=== PATIENT | male | born 1985 ===

== ENCOUNTER 2017-05-10 15:27 | Emergency (ER) | payer MEDICAID, OTHER ==
[2017-05-10 15:39] VITALS: BMI 18.1
[2017-05-10 16:17] VITALS: BP 103/68; PULSE 116; RESP 19; TEMP 99; O2SAT 98
[2017-05-10] MEDS ORDERED: LIDOCAIN/EPI 1-0.001% 10ML INJ SOL IJ ONE (16:18)
--- NOTE | 2017-05-10 16:18 | ED PDOC ---
Arrival/HPI - General Chief Complaint: Abnormal Skin Integrity Time Seen by Provider: 05/10/17 16:18 Historian: Patient - History of Present Illness Narrative History of Present Illness (Text): 05/10/17 16:18 This 31 yo male presents to this ED c/o perineum pain x 3-4 days. Patient stated it started as a small pimple like pain, but it has been worsening. Denies drainage or rectum pain. Denies fever, rectal bleeding. Time/Duration: Other (see hpi) Context: Home Past Medical History - Provider Review Nursing Documentation Reviewed: Yes - Infectious Disease Hx of Infectious Diseases: None - Psychiatric Hx Substance Use: No - Anesthesia Hx Anesthesia: No Family/Social History - Physician Review Nursing Documentation Reviewed: Yes Family/Social History: Other (non contributory) Smoking Status: Heavy Smoker > 10 Cigarettes Daily Hx Alcohol Use: Yes Frequency of alcohol use: Socially Hx Substance Use: No Allergies/Home Meds Allergies/Adverse Reactions: Allergies No Known Allergies Allergy (Verified 05/10/17 15:38) Review of Systems - Review of Systems Constitutional: Normal. absent: Fatigue, Weight Change, Fevers Eyes: Normal ENT: Normal Respiratory: Normal Cardiovascular: Normal Gastrointestinal: Normal Genitourinary Male: Normal Musculoskeletal: Normal Skin: Abscess (see HPI) Neurological: Normal Endocrine: Normal Hemo/Lymphatic: Normal Psychiatric: Normal Physical Exam Vital Signs Temp Pulse Resp BP Pulse Ox 05/10/17 15:42 99.0 F 116 H 19 103/68 98 Temperature: Afebrile Blood Pressure: Normal Pulse: Tachycardic Respiratory Rate: Normal Appearance: Positive for: Well-Appearing, Non-Toxic, Comfortable Pain Distress: None Mental Status: Positive for: Alert and Oriented X 3 - Systems Exam Head: Present: Atraumatic, Normocephalic Pupils: Present: PERRL Extroacular Muscles: Present: EOMI Conjunctiva: Present: Normal Mouth: Present: Moist Mucous Membranes Neck: Present: Normal Range of Motion Respiratory/Chest: Present: Clear to Auscultation, Good Air Exchange. No: Respiratory Distress, Accessory Muscle Use, Wheezes, Retracting, Rhonchi Cardiovascular: Present: Regular Rate and Rhythm, Normal S1, S2. No: Murmurs Abdomen: No: Tenderness Rectal: Present: Normal Rectal Tone, Other ((+) mild induration on perineum area. No drainage or fluctuance). No: Occult Blood, Rectal Tenderness, Gross Blood, Melena, Hemorrhoids, Fissures Upper Extremity: Present: Normal Inspection Lower Extremity: Present: Normal Inspection, Normal ROM Neurological: Present: GCS=15, CN II-XII Intact, Speech Normal, Motor Func Grossly Intact, Normal Sensory Function, Normal Cerebellar Funct, Gait Normal Skin: Present: Warm, Dry, Normal Color, Other (see rectum ). No: Rashes Psychiatric: Present: Alert, Oriented x 3, Normal Insight, Normal Concentration Medical Decision Making ED Course and Treatment: 05/10/17 17:36 Patient stated his right eye has been tearing x 2 days. He admits wearing contact lens 05/10/17 17:53 Eye examination: No FB. Fluorescine stain was negative. No corneal ulcer. No corneal dendritic lesion. Possible conjunctivitis. Re-evaluation Time: 17:55 Reassessment Condition: Re-examined, Improved - Medication Orders Current Medication Orders: Discontinued Medications Fluorescein Sodium (Zouup-I-Atorb A.T.) 2 mg OD ONCE ONE Stop: 05/10/17 17:36 Last Admin: 05/10/17 17:47 Dose: 2 mg Ibuprofen (Motrin Tab) 600 mg PO STAT STA Stop: 05/10/17 17:40 Last Admin: 05/10/17 17:47 Dose: 600 mg MAR Pain/Vitals Document 05/10/17 17:47 OCS (Rec: 05/10/17 17:47 OCS [id number] Pain Reassessment Is This A Pain ReAssessment? Yes Sleep Is patient sleeping during reassessment? No Presence of Pain Presence of Pain Yes Pain Scale Used Pain Scale Used Numeric Trimethoprim/Sulfamethoxazole (Bactrim Ds Tab) 1 tab PO STAT STA PRN Reason: Protocol Stop: 05/10/17 17:40 Last Admin: 05/10/17 17:47 Dose: 1 tab - Procedure PROCEDURE NOTE (Text): 05/10/17 17:20 PROCEDURE: INCISION & DRAINAGE Performed by the emergency provider Indication: Abscess Location: perinium Preparation: The area was prepped and draped in the usual sterile fashion and was cleansed with Betadine. Local infiltration of Lidocaine 1% with Epi was used for anesthesia. Procedure: The most fluctuant portion of the abscess was incised with a #11 scalpel. Approximately 4 mL of purulent material was obtained. The abscess was packed 1/4 inch packing. A dressing was applied by me. Post-Procedure: On exam the abscess is notably less fluctuant. The patient tolerated the procedure well, and there were no complications. Disposition/Present on Arrival - Present on Arrival Any Indicators Present on Arrival: No History of DVT/PE: No History of Uncontrolled Diabetes: No Urinary Catheter: No History of Decub. Ulcer: No History Surgical Site Infection Following: None - Disposition Have Diagnosis and Disposition been Completed?: Yes Diagnosis: Abscess, perineum, Conjunctivitis Disposition: HOME/ ROUTINE Disposition Time: 17:55 Patient Plan: Discharge Condition: GOOD Discharge Instructions (ExitCare): Abscess Incision and Drainage (ED), Conjunctivitis (ED) Additional Instructions: Call private doctor for follow up visit in 2 days. Return to emergency if unable to see your doctor in 2 days. keep wound clean and dry for 2 days. Take medication as instructed. Hand washing a must. DO NOT WEAR EYE CONTACT TILL EYE PROBLEM RESOLVES. Return to emergency if infection worsen. Prescriptions: Ciprofloxacin 0.3% [Ciloxan 0.3% Ophth SOLN] 1 drop OD Q4H #1 bottle Ibuprofen [Motrin] 600 mg PO Q8 PRN #20 tab PRN Reason: Pain, Severe (8-10) Sulfamethoxazole/Trimethoprim [Bactrim DS 800 mg-160 mg] 1 tab PO BID #14 tab Referrals: PCP,NO [Primary Care Provider] - [facility] [[facility]] - Follow up with primary [facility] [Outside] - Follow up with primary Forms: [employer] (Hungarian), WORK NOTE
[2017-05-10] MEDS ORDERED: Fluorescein 1 mg Ophthalmic Strip OD ONE (17:35)
[2017-05-10] MEDS ORDERED: Tmp-Smz 800 mg-160 mg DS Tab PO STA (17:39)
== END 2017-05-10 18:06 | disposition home or self-care (01) ==
LOC: ED 15:27
DX: L02.215 Cutaneous abscess of perineum (principal); H10.9 Unspecified conjunctivitis

== ENCOUNTER 2017-05-12 13:47 | Emergency (ER) | payer MEDICAID, OTHER ==
[2017-05-12 13:47] VITALS: BMI 18.1
[2017-05-12 13:55] VITALS: TEMP 98.8; O2SAT 97
--- NOTE | 2017-05-12 14:49 | ED PDOC ---
Arrival/HPI - General Historian: Patient - History of Present Illness Symptom Course: Improving Quality: Aching Severity Level: 2 Activities at Onset: Rest Context: Home - General Chief Complaint: Wound Check Time Seen by Provider: 05/12/17 13:51 - History of Present Illness Narrative History of Present Illness (Text): 05/12/17 14:46 31yo M presenting to ED for f/u of an I&D of abscess 2 days ago. pt reporting relief of pain and discomfort. denies fevers, chills, n/v/d, or bowel/urinary changes. (Hi Patricia) Past Medical History - Provider Review Nursing Documentation Reviewed: Yes - Past History Past History: No Previous - Infectious Disease Hx of Infectious Diseases: None - Cardiac Hx Cardiac Disorders: No - Pulmonary Hx Respiratory Disorders: No - Neurological Hx Neurological Disorder: No - HEENT Hx HEENT Disorder: No - Renal Hx Renal Disorder: No - Endocrine/Metabolic Hx Endocrine Disorders: No - Hematological/Oncological Hx Blood Disorders: No - Integumentary Other/Comment: ABSCESS - Musculoskeletal/Rheumatological Hx Musculoskeletal Disorders: No - Gastrointestinal Hx Gastrointestinal Disorders: No - Genitourinary/Gynecological Hx Genitourinary Disorders: No - Psychiatric Hx Psychophysiologic Disorder: No Hx Substance Use: No - Surgical History Other/Comment: I&D 2 days prior - Anesthesia Hx Anesthesia: No Family/Social History - Physician Review Nursing Documentation Reviewed: Yes Family/Social History: No Known Family HX Smoking Status: Heavy Smoker > 10 Cigarettes Daily Hx Alcohol Use: Yes Hx Substance Use: No Allergies/Home Meds Allergies/Adverse Reactions: Allergies No Known Allergies Allergy (Verified 05/12/17 13:49) Review of Systems - Physician Review All systems were reviewed & negative as marked: Yes - Review of Systems Constitutional: absent: Fevers Gastrointestinal: absent: Stool Changes, Diarrhea, Nausea, Vomiting Genitourinary Male: absent: Urinary Output Changes Physical Exam Vital Signs Reviewed: Yes Appearance: Positive for: Well-Appearing Pain Distress: None Mental Status: Positive for: Alert and Oriented X 3 - Systems Exam Head: Present: Atraumatic, Normocephalic Pupils: Present: PERRL Extroacular Muscles: Present: EOMI Mouth: Present: Moist Mucous Membranes Neck: Present: Normal Range of Motion Respiratory/Chest: Present: Clear to Auscultation, Good Air Exchange Cardiovascular: Present: Regular Rate and Rhythm, Normal S1, S2 Abdomen: No: Tenderness, Distention Rectal: Present: Other (perineal abscess s/p drainage, not purulent/ erythematous. mildly tender). No: Gross Blood, Hemorrhoids, Fissures Back: Present: Normal Inspection Upper Extremity: Present: Normal Inspection Lower Extremity: Present: Normal Inspection Neurological: Present: Speech Normal Skin: Present: Warm, Dry, Abscess (perineal abscess s/p drainage) Psychiatric: Present: Alert, Oriented x 3 Vital Signs Temp Pulse Resp BP Pulse Ox 05/12/17 15:06 80 18 125/79 05/12/17 13:50 98.8 F 84 16 146/67 97 Medical Decision Making ED Course and Treatment: 05/12/17 14:51 Impression: 31yo M s/p abscess drainage presenting to ED for removal of sterile packing and dressing Plan: sterile packing was removed, no blood or puss present. site was cleaned and flushed with saline. sterile strips and a band-aid were applied. pt complaining of some discomfort, and will receive Motrin. (Hi Patricia) 05/12/17 15:59 Beck Abraham is a 31 year old male whose presents to the emergency department for the removal of sterile packing and dressing after having an abscess drainage. The patient was seen and examined with resident. Came up with treatment and disposition plan with resident. (Federico Fulton) - Medication Orders Current Medication Orders: Discontinued Medications Ibuprofen (Motrin Tab) 400 mg PO STAT STA Stop: 05/12/17 14:46 Last Admin: 05/12/17 15:02 Dose: 400 mg MAR Pain/Vitals Document 05/12/17 15:02 [place] (Rec: 05/12/17 15:03 KS [id number]) Pain Reassessment Is This A Pain ReAssessment? No Sleep Is patient sleeping during reassessment? No Presence of Pain Presence of Pain Yes Pain Scale Used Pain Scale Used Numeric Location Pain Location Body Site Soft Tissue Description Throbbing Intensity 5 Scale Used Numeric Aggravating Factors Changing Position Disposition/Present on Arrival - Present on Arrival Any Indicators Present on Arrival: No History of DVT/PE: No History of Uncontrolled Diabetes: No Urinary Catheter: No History of Decub. Ulcer: No History Surgical Site Infection Following: None - Disposition Have Diagnosis and Disposition been Completed?: Yes Disposition Time: 14:54 Patient Plan: Discharge - Disposition Diagnosis: Status post candida-rectal abscess repair, follow-up exam Disposition: HOME/ ROUTINE Condition: GOOD Additional Instructions: - please keep area clean - please return to activity as tolerated and do not over-exert yourself - please clean and apply new dressing in 2 days - please follow up at [facility] clinic - if you experiencing worsening of pain, bleeding, fevers/chills or bowel changes, please return to ED for evaluation Referrals: PCP,NO [Primary Care Provider] - Follow up with primary [facility] at [facility] [Outside] - Follow up with primary Forms: [employer] (Korean)
[2017-05-12 15:06] VITALS: BP 125/79; PULSE 80; RESP 18
== END 2017-05-12 15:23 | disposition home or self-care (01) ==
LOC: ED 13:47
DX: Z48.815 Encounter for surgical aftercare following surgery on the digestive system (principal)

== ENCOUNTER 2017-06-02 00:42 | Emergency (ER) | payer OTHER, MEDICAID ==
[2017-06-02 00:59] VITALS: BP 123/71; PULSE 73; RESP 18; TEMP 98; O2SAT 99
[2017-06-02] MEDS ORDERED: TDAP Vaccine 0.5 mL Syr IM ONE (01:22)
--- NOTE | 2017-06-02 01:26 | ED PDOC ---
Arrival/HPI <Ramakrishna Pak - Last Filed: 06/02/17 01:39> - General Historian: Patient - History of Present Illness Time/Duration: Prior to Arrival Context: Work <Barbara Hi - Last Filed: 06/03/17 15:42> - General Chief Complaint: Abnormal Skin Integrity Time Seen by Provider: 06/02/17 01:21 - History of Present Illness Narrative History of Present Illness (Text): 06/02/17 01:26 This 31 yo male presents to this ED c/o right hand laceration x 2 hours. Patient stated he accidentally cut hand after a box fell on his hand at work. Patient stated he is able to move hand and fingers without difficulty. Denies other complains. Last tetanus is UKN. (Barbara Hi) Past Medical History - Provider Review Nursing Documentation Reviewed: Yes - Past History Past History: No Previous - Infectious Disease Hx of Infectious Diseases: None - Cardiac Hx Cardiac Disorders: No - Pulmonary Hx Respiratory Disorders: No - Neurological Hx Neurological Disorder: No - HEENT Hx HEENT Disorder: No - Renal Hx Renal Disorder: No - Endocrine/Metabolic Hx Endocrine Disorders: No - Hematological/Oncological Hx Blood Disorders: No - Integumentary Other/Comment: ABSCESS - Musculoskeletal/Rheumatological Hx Musculoskeletal Disorders: No - Gastrointestinal Hx Gastrointestinal Disorders: No - Genitourinary/Gynecological Hx Genitourinary Disorders: No - Psychiatric Hx Psychophysiologic Disorder: No Hx Substance Use: Yes (marijuana) - Surgical History Other/Comment: I&D 2 days prior - Anesthesia Hx Anesthesia: No <Barbara Hi - Last Filed: 06/03/17 15:42> Family/Social History - Physician Review Nursing Documentation Reviewed: Yes Family/Social History: Other (noncontributory) Smoking Status: Light Smoker < 10 Cigarettes Daily Hx Alcohol Use: No Hx Substance Use: Yes (marijuana) <Barbara Hi - Last Filed: 06/03/17 15:42> Allergies/Home Meds <Ramakrishna Pak - Last Filed: 06/02/17 01:39> <Barbara Hi - Last Filed: 06/03/17 15:42> Allergies/Adverse Reactions: Allergies No Known Allergies Allergy (Verified 06/02/17 01:03) Review of Systems - Review of Systems Constitutional: Normal. absent: Fatigue, Weight Change, Fevers Eyes: Normal ENT: Normal Respiratory: Normal Cardiovascular: Normal Gastrointestinal: Normal Genitourinary Male: Normal Musculoskeletal: Other (right hand laceration) Skin: Normal Neurological: Normal Endocrine: Normal Hemo/Lymphatic: Normal Psychiatric: Normal <Barbara Hi - Last Filed: 06/03/17 15:42> Physical Exam Temperature: Afebrile Blood Pressure: Normal Pulse: Regular Respiratory Rate: Normal Appearance: Positive for: Well-Appearing, Non-Toxic, Comfortable Pain Distress: None Mental Status: Positive for: Alert and Oriented X 3 - Systems Exam Head: Present: Atraumatic, Normocephalic Pupils: Present: PERRL Extroacular Muscles: Present: EOMI Conjunctiva: Present: Normal Mouth: Present: Moist Mucous Membranes Neck: Present: Normal Range of Motion Back: Present: Normal Inspection Upper Extremity: Present: Normal ROM, NORMAL PULSES, Neurovascularly Intact, Capillary Refill < 2s, Other ((+) 2.6 cm, irregualr, U-shape laceration, superficial over right palm, near 5th MPJ area, no actively bleeding). No: Cyanosis, Edema, Erythema, Temperature Abnormalties Lower Extremity: Present: Normal Inspection. No: Edema Neurological: Present: GCS=15, CN II-XII Intact, Speech Normal Skin: Present: Warm, Dry, Normal Color. No: Rashes Psychiatric: Present: Alert, Oriented x 3, Normal Insight, Normal Concentration <Barbara Hi - Last Filed: 06/03/17 15:42> Vital Signs Temp Pulse Resp BP Pulse Ox 06/02/17 00:58 98 F 73 18 123/71 99 Medical Decision Making <Ramakrishna Pak - Last Filed: 06/02/17 01:39> Re-evaluation Time: 02:24 Reassessment Condition: Re-examined, Improved <Barbara Hi - Last Filed: 06/03/17 15:42> ED Course and Treatment: 06/02/17 02:24 On reevaluation the patient feels better and is in no acute distress. I have discussed the results and plan with the patient, who expresses understanding. Patient given the opportunity to ask question, all questions were answered and there is agreement with the plan to discharge the patient home with prescription for Keflex. Patient is stable for discharge. Patient was instructed to follow up with physician/clinic in 1-2 days or return if symptoms persist/worsen or new concerning symptoms arise. (Barbara Hi) - RAD Interpretation Narrative RAD Interpretations (Text): 06/02/17 02:24 Wrist x-rays was negative (Barbara Hi) Radiology Orders: 06/02/17 01:22 WRIST, RIGHT 3 VIEWS [RAD] Stat - Medication Orders Current Medication Orders: Discontinued Medications Cephalexin Monohydrate (Keflex) 500 mg PO STAT STA PRN Reason: Protocol Stop: 06/02/17 02:26 Last Admin: 06/02/17 02:38 Dose: 500 mg Tetanus/Reduced Diphtheria/Acell Pertussis (Boostrix Vaccine Inj) 0.5 ml IM .ONCE ONE Stop: 06/02/17 01:23 Last Admin: 06/02/17 02:25 Dose: 0.5 ml [facility] Immunization Data Document 06/02/17 02:[address] [facility] (Rec: 06/02/17 02:[address] [facility] [id number]) Immunization Data Vaccine Lot Number [id number] Vaccine Expiration Date 07/06/19 - Procedure PROCEDURE NOTE (Text): 06/02/17 02:25 PROCEDURE: LACERATION REPAIR Performed by the emergency provider Location: right hand Length: 2.6 cm Description: clean wound edges, no foreign bodies Distal CMS: Normal. No deficits. Neurovascularly intact. Anesthesia: Wrist ulnar nerve block, Lidocaine 1% with EPI. 1.2 ml Preparation: The wound was cleaned with NS and Betadyne. The area was prepped and draped in the usual sterile fashion. Exploration: The wound was explored and no foreign bodies were found. Procedure: The wound was closed with 4-0 Monocryl. There was good approximation. In total, 3 sutures were used. Post-Procedure: Good closure and hemostasis. The patient tolerated the procedure well and there were no complications. CSM remains intact. Post procedure dressing applied. 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 <Ramakrishna Pak - Last Filed: 06/02/17 01:39> Disposition/Present on Arrival <Ramakrishna Pak - Last Filed: 06/02/17 01:39> - Present on Arrival Any Indicators Present on Arrival: No History of DVT/PE: No History of Uncontrolled Diabetes: No Urinary Catheter: No History of Decub. Ulcer: No History Surgical Site Infection Following: None - Disposition Have Diagnosis and Disposition been Completed?: Yes Disposition Time: 02:26 Patient Plan: Discharge <Barbara Hi - Last Filed: 06/03/17 15:42> - Disposition Diagnosis: Hand laceration Disposition: HOME/ ROUTINE Condition: GOOD Discharge Instructions (ExitCare): Care For Your Absorbable Stitches (ED) Additional Instructions: Call private doctor and [facility] doctor for revaluation in 1-2 days. Keep wound clean and dry for 2 days, then clean wound daily with soap and water. return to emergency if wound becomes painful, redness or discharge. Sutures are absorbable so they not not need to be removed. Prescriptions: Cephalexin [cephalexin] 500 mg PO QID #12 cap Referrals: [facility] [Outside] - Follow up with primary [facility] [Outside] - Follow up with primary Forms: [employer] (Austrian), WORK NOTE
--- NOTE | 2017-06-02 09:05 | RAD ---
PROCEDURE: Right Wrist Radiographs. HISTORY: pain r/o fb COMPARISON: None. FINDINGS: BONES: Normal. No fracture. JOINTS: Normal. No dislocation. SOFT TISSUES: Normal. OTHER FINDINGS: None. IMPRESSION: Normal right wrist radiographs.
== END 2017-06-02 02:39 | disposition home or self-care (01) ==
LOC: ED 00:42
DX: S61.411A Laceration without foreign body of right hand, initial encounter (principal); W22.8XXA Striking against or struck by other objects, initial encounter; Y99.0 Civilian activity done for income or pay; Z23 Encounter for immunization; F17.210 Nicotine dependence, cigarettes, uncomplicated